=== PATIENT | male | born 1950 | race Caucasian/White ===

== ENCOUNTER 2022-08-16 10:25 | Outpatient (CLI) | payer MEDICARE, SELFPAY ==
--- NOTE | 2022-08-16 10:15 | DI.RAD_ITS ---
Exam(s) XR SHOULDER LT COMPLETE 2+V EXAM: XR SHOULDER LT COMPLETE 2+V CLINICAL HISTORY: shoulder pain. TECHNIQUE: 2D digital imaging was performed. COMPARISON: CR XR SHOULDER RT COMPLETE 2+V from 08/16/2022 FINDINGS: Two views: No evidence of fracture or dislocation. There is advanced degenerative osteoarthritic narrowing of the glenohumeral joint. Osteophyte on the inferior articular surface of the humeral head. Mild diminution of the subacromial space. There ap pear to be loose bodies posterior to osseous glenoid as seen on the axial image. No obvious loose abbey dies anteriorly. Similar calcifications are seen in the opposite-right shoulder. IMPRESSION: DATA REPOSITORY: RADIATION DOSE DELIVERED:
--- NOTE | 2022-08-16 10:15 | DI.RAD_ITS ---
Exam(s) XR SHOULDER RT COMPLETE 2+V EXAM: XR SHOULDER RT COMPLETE 2+V CLINICAL HISTORY: shoulder pain. TECHNIQUE: 2D digital imaging was performed. COMPARISON: No exams were available for comparison FINDINGS: Two views No evidence of fracture or dislocation. There are significant degenerative changes in the glenohumer al joint with joint space narrowing, albeit somewhat less than is seen on the opposite-left side. v posteriorly there are calcific density is noted behind the osseous glenoid which is a similar findi ng when compared to the opposite side. Either loose intra-articular bodies or synovial based. IMPRESSION: Significant degenerative changes in the glenohumeral joint. DATA REPOSITORY: RADIATION DOSE DELIVERED:
== END 2022-08-16 10:26 | disposition home or self-care (01) ==
LOC: DIORS 10:25
PROVIDERS: Visit Provider Student in an Organized Health Care Education/Training Program
DX: M19.011 Primary osteoarthritis, right shoulder; M19.012 Primary osteoarthritis, left shoulder
CPT/HCPCS: 99203; 73030

== ENCOUNTER 2022-09-05 02:36 | Outpatient (CLI) | payer MEDICARE, SELFPAY ==
--- NOTE | 2022-09-05 06:45 | DI.CT_ITS ---
Exam(s) CT UPPER EXTREMITY RT WO EXAM: CT UPPER EXTREMITY RT WO CLINICAL HISTORY: SURGICAL PLANNING,arthritis rt shoulder, m19.011 TECHNIQUE: Imaging Protocol: Axial computed tomography images with coronal and sagittal reformatted images were created and reviewed. CONTRAST MATERIAL: None COMPARISON: CR XR SHOULDER LT COMPLETE 2+V from 08/16/2022 CR XR SHOULDER RT COMPLETE 2+V from 08/16/2022 FINDINGS: There is advanced osteoarthritic degenerative changes glenohumeral joint with advanced joint space na rrowing and degenerative subarticular cysts evident on both sides the joint. Also osteophyte on the inferior articular surface of the humeral head. There also numerous calcified densities in the joint space at multiple locations including down including anteriorly within prominent fluid within the an terior medial recess and in the biceps tendon sheath within the intertubercular groove. IMPRESSION: Dee osteoarthritic degenerative changes in the right shoulder joint. Joint effusion. Multiple loo se intra-articular bodies. RADIATION DOSE DELIVERED: 887.05mGy.cm Total DLP DATA REPOSITORY: All CT scans at this facility are submitted to the National Radiology Data Registry (NRDR) Dose Index Registry (DIR) with the [employer] ([employer]). RADIATION OPTIMIZATION: All CT scans at this facility use at least one of these dose optimization te chniques: automated exposure control; mA and/or kV adjustment per patient size (includes targeted exa ms where dose is matched to clinical indication); or iterative reconstruction.
== END 2022-09-05 02:56 ==
LOC: DI 02:36
PROVIDERS: Visit Provider Student in an Organized Health Care Education/Training Program
DX: M25.511 Pain in right shoulder (principal); M19.011 Primary osteoarthritis, right shoulder; M25.411 Effusion, right shoulder; M24.011 Loose body in right shoulder
CPT/HCPCS: 73200

== ENCOUNTER → 2022-09-12 11:05 | Outpatient (BNVA) | payer MEDICARE, SELFPAY | PROVIDERS: Visit Provider Student in an Organized Health Care Education/Training Program | DX: M19.011 Primary osteoarthritis, right shoulder (principal) | CPT/HCPCS: 99214 ==

== ENCOUNTER 2022-11-02 06:01 | Day surgery (SDC) | payer MEDICARE, SELFPAY ==
--- NOTE | 2022-11-01 17:46 | W.ANESPRE ---
General Info Date of Service Date Performed: 11/02/22 Height: 6 ft Weight: 88.451 kg Body Mass Index (BMI): 26.4 Surgical Procedure: Operation Date: 11/02/22 07:40 Proposed Procedure Side Surgeon p Shoulder Reverse Total Arthroplasty, Biceps Tenodesis, any other indicated procedures Right Dario Gallo MD Meds Allergies and Home Medications Allergies Allergy/AdvReac Type Severity Reaction Status Date / Time No Known Allergies Allergy Verified 11/01/22 12:02 Home Medication Medication Instructions Recorded aspirin 81 mg tablet,delayed 81 mg PO DAILY prevent blood clot 11/02/22 release 7 days #7 tabs naproxen 250 mg tablet 250 - 500 mg PO BID PRN #40 tabs 11/02/22 oxycodone 5 mg tablet 5 - 10 mg PO Q4H PRN moderate to 11/02/22 severe pain #18 tabs Current Visit Medications: Current Medications Generic Name Dose Route Start Last Admin Trade Name Freq PRN Reason Stop Dose Admin Ringer's Solution 1,000 mls @ 30 mls/hr 11/02/22 06:00 IV 12/01/22 23:59 INFUSION ELI Cefazolin Sodium/Dextrose 2 gm in 50 mls @ 100 mls/hr 11/02/22 06:00 Ancef Duplex IVPB 11/02/22 16:00 PREOP ELI Tranexamic Acid 1,000 mg/ 60 mls @ 360 mls/hr 11/02/22 06:00 Sodium Chloride IVPB 11/02/22 16:00 PREOP ELI IV Miscellaneous Supplies 1 each 11/02/22 06:00 Iv Access IV 12/01/22 23:59 DIRECTED ELI Sodium Chloride 0 ml 11/02/22 06:00 Normal Saline Flush 10 Ml Syr IV 12/01/22 23:59 PRN PRN Sodium Chloride 0 ml 11/02/22 06:00 Normal Saline 10 Ml Vial IJ 12/01/22 23:59 DIRECTED PRN Sterile Water 0 ml 11/02/22 06:00 Water,Injection,Sterile 10 Ml Vial IJ 12/01/22 23:59 DIRECTED PRN PFSH Active Problems Active Problems: Problem Status Onset Code Arthritis of both glenohumeral joints M19.011, M19.012 Arthritis of right shoulder region M19.011 Surgical History Surgical History (Updated 11/01/22 @ 11:59 by Tre Vazquez) Hx of detached retina repair Hx of knee surgery meniscus Tobacco Smoking/Tobacco Use Status: Former Tobacco Use Alcohol Alcohol Intake: current Alcohol intake frequency: a few times a month Substance Use Substance use: Never Substance use type: does not use Vital Signs and Lab Results Vital Signs Most Recent Vital Signs in EMR: Temp Pulse Resp BP Pulse Ox 36.5 C 59 L 16 152/92 H 94 11/02/22 06:12 11/02/22 06:12 11/02/22 06:12 11/02/22 06:12 11/02/22 06:12 Lab Results Blood Type / Crossmatch: No Data to Display Complete Blood Count: No Data to Display Complete Metabolic Panel: No Data to Display Liver Function Panel: No Data to Display Coagulation Panel: No Data to Display Cardiac Panel: No Data to Display Arterial Blood Gas: No Data to Display Venous Blood Gas: No Data to Display Pancreas Panel: No Data to Display Thyroid Panel: No Data to Display Infectious Disease: No Data to Display Blood Cultures: No Data to Display Toxicology Panel: No Data to Display Anesthesia Assessment and Plan Anesthesia History Personal History: No History of Anesthesia Complications Family History: No Family History of Anesthesia Complications Exercise Tolerance Exercise Tolerance: Metabolic Equivalents>4 Cardiac & Pulmonary Exam Cardiac Exam: Normal S1/S2 Heart Sounds Pulmonary Exam: Clear Bilateral Breath Sounds Implantable Cardiac Device Does patient have a Pacemaker or an ICD?: No Airway Exam Known Difficult Airway: No Mallampati Class: 2 Mouth Opening: Normal (> 3cm) Thyromental Distance: Greater than 3 cm Neck Range of Motion: Full ROM and Limited ROM Neck Circumference: Normal Teeth Condition: Normal Dentition ASA Classification ASA Score: ASA 2 Emergency Case?: No NPO Status NPO Status: NPO Clears >2 hours, Solids >8 hours Anesthesia Plan Resuscitation Status: Full Code Anesthesia Technique: General Anesthesia Airway Planned: Endotracheal Tube Pain Management: Surgeon and patient request nerve block Monitors Used: Standard Monitors Preoperative Comments:: 72 yo male for reverse shoulder. Sig PMHx: former smoker, occ EtOH, detached retina.
[2022-11-02] VITALS (13 sets, daily range): BP systolic 104–161; BP diastolic 71–105; PULSE 59–76; RESP 12–21; TEMP 36.3–36.8; O2SAT 93–97; BMI 26.4
--- NOTE | 2022-11-02 06:59 | W.PM.DSUDISC ---
Date of service: 11/02/22 Time of Service: 14:00 Discharge Plan Disposition Patient Disposition: Home Discharge Details Attending Provider: Dario Gallo Home Meds and New Rx's Prescriptions: New naproxen 250 mg tablet 250 - 500 mg PO BID PRNQty: 40 0RF Rx Instructions: take with a meal aspirin 81 mg tablet,delayed release (DR/EC) 81 mg PO DAILY 7 Days Qty: 7 0RF oxycodone 5 mg tablet 5 - 10 mg PO Q4H MDD 30 mg PRN (Reason: moderate to severe pain) Qty: 18 0RF Discontinued ibuprofen [Advil] 200 mg tablet 200 mg PO Q6H PRN Discharge Instructions Additional Instructions: Surgery: Right reverse total shoulder arthroplasty with biceps tenodesis Activity: Do not lift anything heavier than a coffee. You should keep your arm at your side in a neutral position at all times except for gentle range of motion exercises, physical therapy, and essential activities. You should use the sling whenever you are out of the house. You may have to adjust the abduction pillow or remove it for comfort. At home it is best to remove the sling and rest the arm on a pillow at your side or support the operative side with your other hand. A physical therapy prescription will be sent electronically to start in about 3 weeks. MODIFIED Reverse TSA Protocol: Gentle AROM OK Postoperative Weeks 0-6 ?Immobilization: Sling may be removed for therapeutic exercises, resting in bed or chair, and bathing ?Motion exercises: Pendulum exercises, elbow range- of-motion exercises, wrist makrq-lo-xocdsj exercises, and structures mechanic strengthening ?Restrictions: No active internal rotation or backwards extension Postoperative Weeks 6-12 ?Immobilization: Sling discontinued ?Motion exercises: Shoulder passive range of motion, advancing to active-assisted range of motion, and finally active range of motion with a goal of forward flexion to 90? and external rotation of 20? ?Strengthening exercises: Light, resisted forward flexion, external rotation, and abduction limited to isometric exercises and therapy bands with concentric motions only. Continue structures mechanic strengthening ?Restrictions: No resisted internal rotation or backwards extension. No scapular retraction exercises with therapy bands Postoperative Months 3-12 ?Motion exercises: Increase ivhzd-zp-fswlmj exercises to achieve full motion, with passive stretching at end ranges ?Strengthening: Begin resisted, internal rotation and backwards extension initially with isometric exercises advancing to light therapy bands and then weights. Advance other shoulder strengthening exercises to include the rotator cuff, deltoid, and scapular stabilizers. Advance to functional strengthening, including plyometric exercises and core strengthening. Prescriptions: Aspirin 81 mg take 1 daily to prevent a blood clot for 2 weeks Naproxen 250 mg take 1-2 every 12 hours with a meal as needed for moderate pain Oxycodone 5 mg take 1-2 every 4-6 hours as needed for severe pain You may use kyol-cbl-roeqsbm Tylenol (acetaminophen) as needed for mild pain. These pain medications may be taken all at once or in different combinations as needed. Also, recommend Colace (docusate) as a stool softener as surgery and pain medicine cause constipation. You may try qcgm-rva-pubgquc diphenhydramine (Benadryl) 25-50 mg nightly as a sleep aid Dressings: Leave dressing in place until follow-up. Keep clean and dry at all times. No showers please. Follow-up: 10-[address] Gallo You may take off the leg compression stockings this evening at home. You may also leave them on a few days longer if you have a history of leg swelling or edema. Please call the office during business hours with any questions or concerns. Let us know right away if you develop any redness, drainage, fevers, chest pain, or trouble breathing. Do not drink alcohol or drive for at least 24 hours after anesthesia. Stand Alone Forms: Anes.Nerve Block InstructionsJanny (DSU) Discharge Orders Discharge Orders: Discharge Order (Routine); Ordered 11/02/22 Ordered By: Dario Gallo DS: Diagnosis Discharge Diagnosis (1) Arthritis of right shoulder region: Status: Acute
--- NOTE | 2022-11-02 07:01 | ROE_ITS ---
Date of service: 11/02/22 Time of Service: 08:00 Operative Note Operative Note DATE OF PROCEDURE: 11/02/22 PRE-OP DIAGNOSIS: Right: 1. Profound glenohumeral arthritis and chronic deformity POST-OP DIAGNOSIS: same PROCEDURE: Right: 1. Reverse total shoulder arthroplasty, CPT # [address] 2. Open biceps tenodesis, CPT # 66439 The [employer] assistant manager was medically required as this procedure involves retraction, protection of neurovascular structures, and manipulation of multiple instruments and implants at the same time, which cannot be done without a skilled [employer] assistant manager. SURGEON: Dario Gallo ATMOSPHERIC SCIENTIST: Lupe Israel ANESTHESIA TYPE: Local By Surgeon, General LMA/ETT and Primary Nerve Block Refer to Anesthesia Record ESTIMATED BLOOD LOSS: 75 COMPLICATIONS: None Patient was transported to: PACU Implants: [employer] modular glenoid system baseplate 24 mm, full augment wedge 20 degree, +2 lateralized, standard screw orientation [employer] modular glenoid system central post 20 mm [employer] modular glenoid system peripheral locking screws 24 mm inferior, 36 mm superior, 24 mm posterior, 24 mm anterior [employer] modular glenoid system glenosphere 45 +4 mm lateralized [employer] humeral stem 135 degrees size 10 [employer] suture cup size 42 anterior offset [employer] spacer size 42 +9 mm [employer] humeral insert size 42 +3 mm / 45 combo Indications: Please see complete medical record for details. Findings: Profound glenoid and humeral head arthritis and deformity. Significant long head biceps tendon tenosynovitis. Thinning and weakness of the supraspinatus. Thickening and contracture of the subscapularis. Relatively intact posterior superior rotator cuff. Significant medialization and glenoid retroversion with numerous loose bodies. Very sclerotic glenoid. Procedure Description: In the operating room, general anesthesia was induced. The patient was positioned beachchair on the operating room table. All bony prominences were well-padded. Preoperative antibiotics were administered. The shoulder was prepped and draped in the usual sterile fashion for shoulder arthroplasty. The correct patient, procedure, and side of the procedure were all verified prior to incision. The deltopectoral approach was taken to the anterior shoulder. Care was taken to bluntly dissect the interval between the deltoid and pectoralis major muscles and to identify the cephalic vein within its fat stripe. The the vein was mobilized laterally. Subdeltoid space and conjoined tendon were freed of adhesions. The long head of the biceps tendon was identified just lateral to the lesser tuberosity. The uppermost margin of the pectoralis major tendon was released from the proximal humerus. The biceps tendon was tagged and secured for later repair. The biceps tendon was amputated and followed proximally to identify the rotator interval. The supraspinatus was debrided of thinning and partial tearing to a stable margin near to the infraspinatus. The subscapularis was significantly abnormal and started as a peel but became more of a tenotomy. Releases alternated anteriorly and superiorly to obtain joint access. Appropriate coagulation was achieved especially interiorly. The anatomic neck was cut using an oscillating saw with the humeral head bone brought back table in case there was a need for future bone grafting. The proximal humeral protection plate was used to provisionally confirm suture cup and glenosphere size. Attention was then turned to the glenoid and retractors were placed and a circumferential release performed using the long head of the biceps remnant to remove soft tissue about the glenoid rim. There was so much extra bony rim given the deformed glenoid that significant attention care had to be made working around the margins protecting surrounding tissues. The VIP guide was placed on the glenoid and used to confirm placement and trajectory of the central guidepin. The guidepin was inserted through the augmented guide and advanced just through the far cortex ensuring adequate central fixation length. Depth gauge was used to confirm length. The glenosphere sizer was used to confirm positioning and glenosphere size. The remotely piloted vehicle controller drill was used given the sclerotic bone. The augmented reamer carefully used maintaining correct orientation correcting the deformity largely from posterior to anterior. Given the relatively short glenoid vault available, reaming was stopped once there was circumferential prepared sclerotic glenoid bone. The wire and remotely piloted vehicle controller drill had not encountered any cancellous bone, and any additional medialization through reaming would compromise available fixation. The central screw drill was then used through significantly sclerotic bone, but there was no penetration of the glenoid vault and the guidewire remained in position. The guidewire was then removed. The baseplate was impacted sequentially fully seating onto the glenoid surface. The locking guide was then used to drill and place appropriately lengthed inferior, superior, anterior, and posterior screws. The kvcs-rpb-rzdpsyvmx reamer was used to achieve adequate peripheral reaming, which required additional bony resection to the larger size glenosphere anteriorly and inferiorly as templated. Additionally, the rongeur and careful exposure again done around the margins to remove even more additional bone that was still prominent anteriorly inferiorly extending laterally. Once the glenoid side was prepared as best possible, the glenosphere was applied with the orthodontist assistant and then impacted to engage the Bermudez taper. It was then locked with appropriate countersinking of the setscrew. The glenosphere was inspected and found to have good fit, appropriate positioning, and no soft tissue or bony impingement. Attention was then turned back to the proximal humerus, which was delivered from the wound and maintained in external rotation. Reamers were started appropriately posterior to the bicipital groove taking care to maintain in line approach with the humeral canal. Sequential reaming was done from size 5 up to size 8. Next, the broaches were sequentially used to open the proximal humerus starting with a size 5 and going up to size 10 and sunk to the appropriate depth while maintaining approximately 30 degrees retroversion. There was good metaph yseal fit and rotational control of the proximal humerus with this size. The anterior offset guide was used to ream for the suture cup. The humeral trial cup was connected. Trialing was commenced with +3 mm liner. The shoulder was reduced and taken through range of motion. Trial components were built up to +9 mm spacer +3 mm liner to achieve good stability and appropriate tension on the deltoid and conjoined tension. The trial components were removed from the proximal humerus. The wound was copiously irrigated with normal saline. Given the significant anterior contracture, subscapularis tenotomy was completed, and not attempted for repair to the lateralized construct. The the proximal humeral stem and suture cup were assembled and brought over the proximal humerus. A small amount of vancomycin powder was distributed in the proximal humerus. The humeral component and suture cup were impacted into place. The trial spacer and liner were added, and the shoulder was reduced and range of motion, stability, and tension confirmed to be appropriate. The final +9mm spacer and +3mm liner were then connected, and range of motion, stability, and tension confirmed. The long head of the biceps tendon was then tenodesed at the appropriate tension length with SutureTape in a yyagtv-ey-icjcs fashion securing it superior margin the pectoralis major tendon. The shoulder was copiously irrigated with Betadine and normal saline. Vancomycin powder was distributed deeply about the shoulder and through subcutaneous tissues. The arm was placed in about 30 degrees of external rotation. The deltopectoral interval was well reapproximated using 0 Vicryl burying the vein. Subcutaneous tissue was irrigated then closed using 2-0 Monocryl in a buried interrupted fashion. Skin was closed using 3-0 Monocryl in a buried subcuticular fashion. Skin glue was applied to the incision. A silver impregnated bandage was placed over the incision. The extremity was placed into a shoulder immobilizer. The patient awoke from anesthesia without complication and was taken to the recovery room in stable condition.
[2022-11-02] MEDS: Lactated Ringers 1,000 ML 30 ML IV (07:05)
[2022-11-02] MEDS: ceFAZolin 2 GM/50 ML BAG IVPB (07:37)
--- NOTE | 2022-11-02 08:05 | W.ANESNERVE ---
Nerve Block Single Injection Procedure Date and Time Date Performed: 11/02/22 Procedure Start: 07:17 Location Where Procedure Performed Procedure Location: Day Surgery Unit Reason Performed: Postoperative Analgesia Requesting Provider: Dario Gallo Timeout Performed Timeout Performed: Yes Monitoring Used ECG, Blood Pressure and SpO2 Sterility Sterility: Hand Hygiene, Surgical Cap, Surgical Mask, Sterile Gloves and Chlorhexidine Sedation Given During Procedure Sedation Given (Indicate Dose Given): Versed IV Dose:: 1 mg Patient Mental Status Patient Mental Status: Sedate with meaningful communication Nerve Block 1st Nerve Block: Laterality: Right Block Type: Interscalene Ultrasound Image Saved?: Yes Needle / Catheter Used: 100mm SonoPlex II Local Anesthetic Bolus (Indicate Dose Given): Lidocaine used for local infiltration of skin, Bupivacaine 0.5% Dose:: 15 mL and Exparel Dose:: 10 mL Additives (Indicate Dose Given): None Ultrasound: Sterile probe cover and gel used Nerve Stimulator: Supplement to Ultrasound use and No twitch or parasthesia noted < 0.5 mA Paresthesia: None Procedure Tolerated: No Complications Procedure Outcome: Successful Procedure Comment: technically challenging anatomy. Performed By: Thomas Morrow
--- NOTE | 2022-11-02 11:00 | DI.RAD_ITS ---
Exam(s) XR SHOULDER RT COMPLETE 2+V EXAM: XR SHOULDER RT COMPLETE 2+V CLINICAL HISTORY: Portable in PACU postop. TECHNIQUE: 2D digital imaging was performed of the right shoulder. Three images were obtained. AP views were obtained. COMPARISON: CR XR SHOULDER RT COMPLETE 2+V from 08/16/2022 FINDINGS: JOINTS: The patient is now status post right total reverse shoulder replacement. Postsurgical change s are seen in the soft tissues. The bones are intact. IMPRESSION: Status post right total reverse shoulder replacement.. DATA REPOSITORY: RADIATION DOSE DELIVERED:
[2022-11-02] MEDS: Bupivacaine 0.25% Pres-Free W/EPI 30 ML VIAL (11:02)
--- NOTE | 2022-11-02 12:46 | W.ANESPOSTOP ---
Postoperative Evaluation Date, Time and Location Date Performed: 11/02/22 Time Performed: 12:46 Patient Location: PACU Vital Signs Most Recent Imported Vital Signs: Most Recent Vital Signs Temp Pulse Resp BP Pulse Ox 36.7 C 64 21 121/78 95 11/02/22 12:37 11/02/22 12:37 11/02/22 12:37 11/02/22 12:37 11/02/22 12:37 Pain Score Most Recent Pain Score: Most Recent Pain Score Pain Level 0 11/02/22 07:33 Assessment Mental Status: Arousable with meaningful communication Airway and Respiratory Function: Patent airway with normal (patient baseline) respiratory exam Cardiovascular Function: Hemodynamically Stable Hydration Status: Adequately Hydrated Nausea & Vomiting: No Nausea or Vomiting Pain: Pain is tolerable per patient Peripheral Nerve Block: Regional nerve block not resolved at time of post operative discharge
[2022-11-02] MEDS: oxyCODONE 5 MG TAB PO (13:59)
== END 2022-11-02 15:39 | disposition home or self-care (01) ==
PROVIDERS: Visit Provider Student in an Organized Health Care Education/Training Program
PROC: (CPT 23472; principal; 2022-11-02 07:30)
DX: M19.011 Primary osteoarthritis, right shoulder (principal)
CPT/HCPCS: 23472; C1713; 76942; 73030; J0131; J0690; J1100; J1885; J2250; J2405; J2704; J3475

== ENCOUNTER 2022-11-14 13:40 | Outpatient (CLI) | payer MEDICARE, SELFPAY ==
--- NOTE | 2022-11-14 13:27 | DI.RAD_ITS ---
Exam(s) XR SHOULDER RT COMPLETE 2+V EXAM: XR SHOULDER RT COMPLETE 2+V CLINICAL HISTORY: f/u surgery. TECHNIQUE: 2D digital imaging was performed. Two images were obtained. AP and Y views were obtained . COMPARISON: CR XR SHOULDER RT COMPLETE 2+V from 11/02/2022 FINDINGS: BONES: There are stable post operative changes present. No fracture or dislocation. JOINTS: The orthopedic hardware is in good position. No evidence of hardware loosening. SOFT TISSUE: Postsurgical changes are seen in the soft tissues. IMPRESSION: Stable postoperative changes. DATA REPOSITORY: RADIATION DOSE DELIVERED:
== END 2022-11-14 13:41 | disposition home or self-care (01) ==
LOC: DIORS 13:40
PROVIDERS: Visit Provider Student in an Organized Health Care Education/Training Program
DX: M19.011 Primary osteoarthritis, right shoulder (principal); Z47.89 Encounter for other orthopedic aftercare
CPT/HCPCS: 73030

== ENCOUNTER 2022-11-22 14:07 | Outpatient (CLI) | payer MEDICARE, SELFPAY ==
--- NOTE | 2022-11-22 14:00 | DI.RAD_ITS ---
Exam(s) XR SHOULDER RT COMPLETE 2+V EXAM: XR SHOULDER RT COMPLETE 2+V INDICATION: f/u shoulder surgery. COMPARISON: CR XR SHOULDER RT COMPLETE 2+V from 11/14/2022 TECHNIQUE: 2D digital imaging was performed. Two views. FINDINGS: There has been no change in the alignment in the reverse shoulder prosthesis. There are no suspiciou s bony lucencies. DATA REPOSITORY: RADIATION DOSE DELIVERED:
== END 2022-11-22 14:08 | disposition home or self-care (01) ==
LOC: DIORS 14:08
PROVIDERS: Visit Provider Student in an Organized Health Care Education/Training Program
DX: Z47.1 Aftercare following joint replacement surgery; Z96.611 Presence of right artificial shoulder joint
CPT/HCPCS: 73030

== ENCOUNTER 2022-12-27 13:23 | Outpatient (CLI) | payer MEDICARE, SELFPAY ==
--- NOTE | 2022-12-27 13:19 | DI.RAD_ITS ---
Exam(s) XR SHOULDER RT COMPLETE 2+V EXAM: XR SHOULDER RT COMPLETE 2+V CLINICAL HISTORY: F/U RTSA. TECHNIQUE: 2D digital imaging was performed. Two views. COMPARISON: CR XR SHOULDER RT COMPLETE 2+V from 11/22/2022 FINDINGS: BONES: No acute fracture is present. No bony destructive lesion is seen. JOINTS: No dislocation present. Change in the alignment of the total shoulder prosthesis. SOFT TISSUE: Normal. IMPRESSION: Stable total shoulder prosthesis. DATA REPOSITORY: RADIATION DOSE DELIVERED:
== END 2022-12-27 13:24 | disposition home or self-care (01) ==
LOC: DIORS 13:24
PROVIDERS: Visit Provider Student in an Organized Health Care Education/Training Program
DX: Z47.89 Encounter for other orthopedic aftercare (principal); M19.011 Primary osteoarthritis, right shoulder
CPT/HCPCS: 73030

== ENCOUNTER → 2023-02-28 13:55 | Outpatient (BNVA) | payer MEDICARE, SELFPAY | PROVIDERS: Visit Provider Student in an Organized Health Care Education/Training Program | DX: Z96.611 Presence of right artificial shoulder joint (principal); M19.011 Primary osteoarthritis, right shoulder | CPT/HCPCS: 99213 ==

== ENCOUNTER → 2023-11-06 15:59 | Outpatient (CLI) | payer MEDICARE, SELFPAY ==
--- NOTE | 2023-11-06 16:50 | DI.RAD_ITS ---
Exam(s) XR CERVICAL SPINE COMP 4-5V EXAM: XR CERVICAL SPINE COMP 4-5V CLINICAL HISTORY: evaluate for fx, vertebral alignment W19.XXXA FALL. TECHNIQUE: 2D digital imaging was performed. COMPARISON: No exams were available for comparison FINDINGS: Six views No evidence of fracture, listhesis, nor offset of the spinal laminar line. There is moderate-advance d disc space narrowing at each level in the cervical spine with the exception of C2-3 which exhibit p reserved height. There is multilevel facet arthropathy also noted. Small bilateral Luschka joint os teophytes are noted in the lower cervical levels. There are no cervical ribs. No bone lesions. IMPRESSION: Multilevel chronic degenerative disc disease and facet arthropathy. No fractures. No listhesis. DATA REPOSITORY: RADIATION DOSE DELIVERED:
--- NOTE | 2023-11-06 16:51 | DI.RAD_ITS ---
Exam(s) XR HIP LT COMPLETE AP PELVIS EXAM: XR HIP LT COMPLETE AP PELVIS CLINICAL HISTORY: evaluate pathology W19.XXXA FALL M25.552 PAIN LEFT HIP. TECHNIQUE: 2D digital imaging was performed. COMPARISON: No exams were available for comparison FINDINGS: 3 views Is no evidence of pelvic nor hip fracture. Right hip appears unremarkable. Left hip exhibits an add ition bone density at the femoral neck level measuring 5 cm wide by 2.2 cm height. This is coming of f of the femoral neck. There is mild-minimal narrowing of the joint space. IMPRESSION: There is a 5 x 2.2 cm bony excrescence which is coming off of the left femoral neck. This elevates t he capsule. Recommend further study with CT/MRI. DATA REPOSITORY: RADIATION DOSE DELIVERED:
--- NOTE | 2023-11-06 16:51 | DI.RAD_ITS ---
Exam(s) XR KNEE RT 4V AP,LAT,CLARA,PAT EXAM: XR KNEE RT 4V AP,LAT,CLARA,PAT CLINICAL HISTORY: evaluate pathology W19.XXXA FALL M25.561 PAIN RT KNEE. TECHNIQUE: 2D digital imaging was performed. COMPARISON: No exams were available for comparison FINDINGS: Four views. No evidence of acute fracture but there does appear to be a joint effusion. There is advanced narrow ing of the medial compartment. There also appears to be an osteochondral defect at the articular henok face of the medial femoral condyle. Lateral compartment exhibits normal height. Chondrocalcinosis s een in both medial lateral compartments. Patellofemoral compartment exhibits normal width. IMPRESSION: Degenerative changes as above most prominent in the medial compartment where there also appears to be an osteochondral defect at the articular surface of the medial condyle. DATA REPOSITORY: RADIATION DOSE DELIVERED:
== END ==
PROVIDERS: Visit Provider Nurse Practitioner Family
DX: M50.31 Other cervical disc degeneration, high cervical region; M47.812 Spondylosis without myelopathy or radiculopathy, cervical region; M25.461 Effusion, right knee; M25.561 Pain in right knee; M17.11 Unilateral primary osteoarthritis, right knee; M25.552 Pain in left hip; M21.852 Other specified acquired deformities of left thigh; W19.XXXA Unspecified fall, initial encounter
CPT/HCPCS: 72050; 73502; 73564

== ENCOUNTER → 2023-11-13 15:01 | Outpatient (BNVA) | payer MEDICARE, SELFPAY | PROVIDERS: Visit Provider Student in an Organized Health Care Education/Training Program | DX: S83.281D Other tear of lateral meniscus, current injury, right knee, subsequent encounter (principal); V00.321D Fall from snow-skis, subsequent encounter; M17.11 Unilateral primary osteoarthritis, right knee | CPT/HCPCS: 99213 ==

== ENCOUNTER 2023-11-14 15:39 | Outpatient (CLI) | payer MEDICARE, SELFPAY ==
--- NOTE | 2023-11-14 13:18 | DI.RAD_ITS ---
Exam(s) XR SHOULDER RT COMPLETE 2+V EXAM: XR SHOULDER RT COMPLETE 2+V CLINICAL HISTORY: F/U RIGHT RTSA. TECHNIQUE: 2D digital imaging was performed. Five views. COMPARISON: CR XR SHOULDER RT COMPLETE 2+V from 11/02/2022 CR XR SHOULDER RT COMPLETE 2+V from 11/22/2022 CR XR SHOULDER RT COMPLETE 2+V from 12/27/2022 FINDINGS: There has been no change in the alignment of the reverse shoulder prosthesis. There are no abnormal surrounding bony lucencies. IMPRESSION: Stable appearance of reverse shoulder prosthesis DATA REPOSITORY: RADIATION DOSE DELIVERED:
== END 2023-11-14 15:40 | disposition home or self-care (01) ==
LOC: DIORS 15:39
PROVIDERS: Visit Provider Student in an Organized Health Care Education/Training Program
DX: Z47.1 Aftercare following joint replacement surgery (principal); Z96.611 Presence of right artificial shoulder joint; S46.211D Strain of muscle, fascia and tendon of other parts of biceps, right arm, subsequent encounter; X58.XXXD Exposure to other specified factors, subsequent encounter
CPT/HCPCS: 99213; 73030

== ENCOUNTER → 2023-11-26 04:01 | Outpatient (CLI) | payer MEDICARE, SELFPAY ==
--- NOTE | 2023-11-26 07:30 | DI.MRI_ITS ---
Exam(s) MR LOWER JOINT LT WO/W EXAM: MR LOWER JOINT LT WO/W CLINICAL HISTORY: bone lesion lt hip,m89.9,eval path TECHNIQUE: Multiplanar multisequence MRI of the hip was performed. Both pre and post contrast infused sequences were performed. Contrast infused = 17 mL donor in COMPARISON: Recent plain films reviewed FINDINGS: MARROW:There is a corticated bone lesion along the anterior left femoral neck which has appearance of an osteochondroma measuring 5 x 3 x 4 cm. There appears to be a nondisplaced fracture within this l esion, best evident on the axial images and with surrounding bone edema which extends into the femora l neck and inter trochanteric region. Following contrast injection this entire area of bone as well as the overlying capsule exhibits enhancement. There does not appear to be a prominent periosteal re action over this region nor soft tissue mass and the bone edema is therefore most probably related to the fracture within this large bony excrescence. EFFUSION: Small joint effusion noted. BURSAE: There is no evidence of trochanteric bursitis. There is no evidence of iliopsoas bursitis. HIP JOINT SPACE: There are mild degenerative changes. No osteophytes. No degenerative subarticular cysts. LABRUM: There is no evidence of obvious labral tear nor evidence of paralabral cyst. TENDONS: No evidence of tendinitis nor tendon tears. ISCHIAL TUBEROSITY/HAMSTRING: There is no abnormal intraosseous signal in the ipsilateral ischial tub erosity nor tear of the common hamstrings tendon attachment site at this level. IMPRESSION: 1. There is a prominent osteochondroma (which measures approximately 5 x 3 x 4 cm) off the left femor al neck which appears to contain a pathologic fracture which accounts for the abundant bone edema wit hin this bone lesion and extending into the adjacent femoral neck and upper intertrochanteric region. DATA REPOSITORY:
[2023-11-26 12:51] LABS: Estimated GFR 79.97 (mL/min/1.73m2)
[2023-11-26] MEDS: Normal Saline Flush 10 ML SYR IJ (13:07)
[2023-11-26] MEDS: Gadoterate meglumine 20 ML SYRINGE IVP (13:08)
--- NOTE | 2023-11-27 00:14 | DI.VRAD_ITS ---
PROCEDURE INFORMATION: Exam: MR Left Lower Extremity Joint Without and With Contrast; Hip Exam date and time: 11/26/2023 12:29 PM Age: 73 years old Clinical indication: Other: Bone lesion lt hip, eval path TECHNIQUE: Imaging protocol: Magnetic resonance imaging of the left lower extremity joint without and with contrast. Exam focused on the hip. Contrast material: DOTERUM; Contrast volume: 17 ml; Contrast route: INTRAVENOUS (IV); COMPARISON: CR XR HIP LT COMPLETE AP PELVIS 11/06/2023 4:24 PM FINDINGS: Bones/joints: A mature corticated bony lesion is seen along the anterior left femoral neck measuring 5.3 x 3.2 cm by 4.3 cm. There is a small area of contiguity of the medullary cavity between the femur and the lesion. There is some overlying fluid contiguous with joint fluid in the left hip. Areas of abnormal low T1/high T2 serpiginous signal seen in the adjacent femoral neck and the lesion itself, with possible central fracture line within the lesion which is best seen on series 9001, image 20. No periosteal reaction, associated soft tissue mass or other aggressive features are seen. Labrum: Unremarkable. No tear. TENDONS: Tendons of iliopsoas group: Unremarkable. No evidence of tear. Tendons of medial compartment of thigh: Unremarkable. No evidence of tear. Tendons of lateral rotators of hip: Unremarkable. No evidence of tear. Tendons of gluteal group: Unremarkable. No evidence of tear. Soft tissues: See Bowel finding. Bowel: There is diverticular disease of the colon, without evidence of acute diverticulitis. No perforation, or abscess. No signs or history of bleeding provided. IMPRESSION: Lesion adjacent to the left femoral neck may represent a sessile osteochondroma, with possible pathologic fracture and overlying bursal collection. Dictated and Authenticated by: Kelsey Owens MD. Ordering:KINGSLEY Gonzalez MD
== END ==
PROVIDERS: Visit Provider Nurse Practitioner Family
DX: M89.252 Other disorders of bone development and growth, left femur
CPT/HCPCS: 73723; 82565

== ENCOUNTER → 2023-11-29 10:53 | Outpatient (BNVA) | payer MEDICARE, SELFPAY | DX: M17.11 Unilateral primary osteoarthritis, right knee (principal) | CPT/HCPCS: 99215 ==